=== PATIENT | male | born 1995 | race Two or more races ===

== ENCOUNTER 2018-04-17 17:38 | Emergency (ER) | payer OTHER ==
[~2018-04-17] VITALS: Ht 167.6 cm; Wt 68.0 kg
[2018-04-17 17:41] VITALS: BP 144/87
== END 2018-04-17 18:48 | disposition home or self-care (01) ==
LOC: ED 18:42
DX: B07.9 Viral wart, unspecified (principal)
CPT/HCPCS: 99281

== ENCOUNTER 2020-09-20 07:21 | Emergency (ER) | payer SELFPAY ==
[~2020-09-20] VITALS: Ht 167.6 cm; Wt 74.5 kg
--- NOTE | 2020-09-20 08:30 | NUR ---
PT SITTING UP ON GURNEY AWAKE & COMFORTABLE, RESPONDS APPROP TO STAFF & ASKING WHEN HE CAN EAT, NAD, NO NEEDS AT THIS TIME, VISITOR AT BS, CALL LIGHT WITHIN REACH.
[2020-09-20 08:39] VITALS: BP 114/63
--- NOTE | 2020-09-20 08:52 | NUR ---
REPORT GIVEN TO [facility]
== END 2020-09-20 09:24 | disposition home or self-care (01) ==
LOC: ED 09:18
DX: S16.1XXA Strain of muscle, fascia and tendon at neck level, initial encounter (principal); S09.90XA Unspecified injury of head, initial encounter; V49.50XA Passenger injured in collision with unspecified motor vehicles in traffic accident, initial encounter; Y93.89 Activity, other specified; Y92.488 Other paved roadways as the place of occurrence of the external cause; Y99.8 Other external cause status
CPT/HCPCS: 70450; 72125; 99285